=== PATIENT | female | born 1990 | race Caucasian/White ===

== ENCOUNTER 2024-04-27 15:14 | Outpatient (CLI) | payer OTHER, SELFPAY ==
[2024-04-27 23:10] LABS: Chlamydia DNA Amplified* NOT DETECTED (No Detected); GC DNA Amplified* NOT DETECTED (No Detected)
== END 2024-04-27 15:15 | disposition home or self-care (01) ==
LOC: LKVREF 15:14
PROVIDERS: PCP Emergency Medicine; Visit Provider Emergency Medicine
DX: Z11.3 Encounter for screening for infections with a predominantly sexual mode of transmission (principal); Z11.59 Encounter for screening for other viral diseases; Z11.4 Encounter for screening for human immunodeficiency virus [HIV]; Z13.220 Encounter for screening for lipoid disorders; Z13.228 Encounter for screening for other metabolic disorders
CPT/HCPCS: 80048; 80061; 86592; 86703; 86706; 86803; 87491; 87591

== ENCOUNTER 2024-08-30 08:49 | Outpatient (CLI) | payer OTHER, SELFPAY | END 2024-08-30 08:50 | disposition home or self-care (01) | PROVIDERS: PCP Emergency Medicine; Visit Provider Family Medicine | DX: R74.8 Abnormal levels of other serum enzymes (principal); R11.0 Nausea; R50.9 Fever, unspecified | CPT/HCPCS: 80076; 85025; 86308 ==

== ENCOUNTER 2024-09-02 12:43 | Outpatient (CLI) | payer OTHER, SELFPAY | END 2024-09-02 12:44 | disposition home or self-care (01) | LOC: LKVREF 12:44 | PROVIDERS: PCP Emergency Medicine; Visit Provider Family Medicine | DX: R74.8 Abnormal levels of other serum enzymes (principal) | CPT/HCPCS: 80074; 80076 ==

== ENCOUNTER 2024-09-12 14:56 | Outpatient (CLI) | payer OTHER, SELFPAY | END 2024-09-12 14:57 | disposition home or self-care (01) | LOC: NFLDREF 09-15 23:36 | PROVIDERS: PCP Emergency Medicine; Visit Provider Family Medicine | DX: R74.8 Abnormal levels of other serum enzymes (principal) | CPT/HCPCS: 80076 ==

== ENCOUNTER 2024-11-16 09:14 | Outpatient (CLI) | payer OTHER, SELFPAY | END 2024-11-16 09:15 | disposition home or self-care (01) | LOC: NFLDREF 11-20 06:36 | PROVIDERS: PCP Emergency Medicine; Referring Provider Emergency Medicine; Visit Provider Family Medicine | DX: R74.8 Abnormal levels of other serum enzymes (principal) | CPT/HCPCS: 80076 ==

== ENCOUNTER 2025-04-21 08:10 | Outpatient (CLI) | payer OTHER, SELFPAY | END 2025-04-21 08:11 | disposition home or self-care (01) | LOC: NFLDREF 04-26 12:49 | PROVIDERS: Visit Provider Family Medicine | DX: R74.8 Abnormal levels of other serum enzymes (principal); E78.5 Hyperlipidemia, unspecified | CPT/HCPCS: 80053; 80061 ==